=== PATIENT | female | born 1995 | race Caucasian/White ===

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

== ENCOUNTER 2017-09-24 14:00 | Outpatient (RCR) | payer OTHER ==
[2017-06-29 11:19] VITALS: BP 113/84; PULSE 64; TEMP 97.4
[2017-07-27 14:13] VITALS: BP 103/68; PULSE 70; TEMP 98.4
[2017-08-27 14:45] VITALS: BP 107/64; PULSE 81; TEMP 97.7
[~2017-09-24] VITALS: Ht 152.4 cm; Wt 54.0 kg
[~2017-09-24 14:00] MED LIST changes: +COLACE 100100 MG/CAP PO; +IRON TABLETS325 MG PO; +MASON NATURAL2000 IU PO; +PRILOSEC 20MG20 MG PO; +VITAMIN B-625 MG PO; +VITAMIN B650 MG PO; +VITAMIN D 400400 IU PO
== END 2017-09-27 ==
LOC: EUO
DX: J45.909 Unspecified asthma, uncomplicated (principal); Z91.09 Other allergy status, other than to drugs and biological substances; R76.8 Other specified abnormal immunological findings in serum; Z79.899 Other long term (current) drug therapy
CPT/HCPCS: J2357

== ENCOUNTER 2017-11-06 13:00 | Outpatient (RCR) | payer OTHER ==
[2017-10-10 15:46] VITALS: BP 111/60; PULSE 84; TEMP 98
[~2017-11-06] VITALS: Ht 152.4 cm; Wt 56.0 kg
[2017-11-06 13:11] VITALS: BP 98/62; PULSE 77; TEMP 98.2
== END 2017-11-06 16:00 | disposition home or self-care (01) ==
LOC: EUO 13:00
DX: J45.909 Unspecified asthma, uncomplicated (principal); R76.8 Other specified abnormal immunological findings in serum; Z91.09 Other allergy status, other than to drugs and biological substances; Z79.899 Other long term (current) drug therapy
CPT/HCPCS: J2357

== ENCOUNTER → 2017-12-10 | Outpatient (CLI) | payer OTHER | LOC: EUO 16:00 | DX: J45.909 Unspecified asthma, uncomplicated (principal); R76.8 Other specified abnormal immunological findings in serum; Z91.09 Other allergy status, other than to drugs and biological substances | CPT/HCPCS: J2357 ==

== ENCOUNTER 2018-01-08 15:52 | Outpatient (CLI) | payer OTHER | END 2018-01-08 17:00 | disposition home or self-care (01) | LOC: EUO 15:52 | DX: J45.909 Unspecified asthma, uncomplicated (principal); R76.8 Other specified abnormal immunological findings in serum; Z91.09 Other allergy status, other than to drugs and biological substances; Z79.899 Other long term (current) drug therapy | CPT/HCPCS: J2357 ==

== ENCOUNTER 2018-03-05 15:24 | Outpatient (CLI) | payer OTHER ==
[~2018-03-05] VITALS: Ht 152.4 cm; Wt 58.0 kg
[~2018-03-05 15:24] MED LIST changes: +ASPIRIN 81M81 MG/TA2 PO; +PRENATAL MVI PO; +UNISOM25 MG PO
[2018-03-05 15:40] VITALS: BP 103/58; PULSE 77; TEMP 97.6
== END 2018-03-05 16:30 | disposition home or self-care (01) ==
LOC: EUO 15:24
DX: J45.909 Unspecified asthma, uncomplicated (principal); R76.8 Other specified abnormal immunological findings in serum; Z91.09 Other allergy status, other than to drugs and biological substances; Z79.899 Other long term (current) drug therapy
CPT/HCPCS: J2357

== ENCOUNTER → 2018-05-01 | Outpatient (CLI) | payer OTHER | LOC: EUO 04-29 15:00 | DX: O09.90 Supervision of high risk pregnancy, unspecified, unspecified trimester (principal); O35.8XX0 Maternal care for other (suspected) fetal abnormality and damage, not applicable or unspecified | CPT/HCPCS: J2357 ==

== ENCOUNTER 2019-03-01 22:17 | Emergency (ER) | payer OTHER ==
[~2019-03-01] VITALS: Ht 152.4 cm; Wt 60.0 kg
[2019-03-01 22:20] VITALS: BP 125/66; TEMP 97.2
[2019-03-01 22:51] LABS: BASO # 0.1 (0.0-0.2); BASO % 0.7 % (0.0-2.0); EOS # 0.3 (0.0-0.7); EOS % 2.9 % (0-4.0); GRAN # 5.1 (1.4-6.5); GRAN % 57.4 % (42.2-75.2); HEMATOCRIT 40.1 % (37.0-47.0); HEMOGLOBIN 13.6 g/dl (12.5-16.0); LYMPH # 2.7 (1.2-3.4); LYMPH % 30.3 % (20.0-51.0); MEAN CELL VOLUME 82 fl (80.0-100.0); MEAN CORPUSCULAR HEMOGLOBIN 28 pg (27.0-31.0); MEAN CORPUSCULAR HGB CONC 34 g/dl (33.0-37.0); MEAN PLATELET VOLUME 9.4 fl (7.4-10.4); MONO # 0.8 (0.1-0.6); MONO % 8.5 % (1.7-9.3); PLATELET COUNT 328 K/mm3 (130-400); RED BLOOD COUNT 4.91 M/mm3 (4.10-5.30); REDCELL DISTRIBUTION WIDTH-CV 13.8 % (11.5-14.5)
[2019-03-01 23:04] LABS: BILIRUBIN,TOTAL 0.3 mg/dL (0.0-1.0); C-REACTIVE PROTEIN 0.6 mg/dL (0.0-0.9); CREATININE, serum 0.82 (0.52-1.25); POTASSIUM 4.1 mmol/L (3.4-5.0); TOTAL PROTEIN 8.5 gm/dL (6.4-8.2)
[2019-03-01 23:09] LABS: COLLECTION METHOD CLEAN CATCH
[2019-03-01 23:14] LABS: MUCOUS Present /lpf; PH 7 (5-8); URINE APPEARANCE Hazy; URINE BACTERIA None Seen /hpf; URINE BILIRUBIN Negative (NEGATIVE); URINE BLOOD Negative (NEGATIVE); URINE COLOR Yellow; URINE GLUCOSE Negative (NEGATIVE); URINE KETONE Negative (NEGATIVE); URINE LEUKOCYTE ESTERASE 1+ (NEGATIVE); URINE NITRATE Negative (NEGATIVE); URINE PROTEIN(semi-quant) Negative (NEGATIVE); URINE RBC 0-2 /hpf; URINE UROBILINOGEN Negative (NEGATIVE)
[2019-03-01] MEDS ORDERED: ZOFRAN ODT4 MG PO (23:26)
[2019-03-01] MEDS ORDERED: OMNICEF 300MG300 MG PO (23:26)
[2019-03-01 23:35] VITALS: PULSE 71
== END 2019-03-01 23:35 | disposition home or self-care (01) ==
LOC: COL.ER 22:17
PROVIDERS: Physician Assistant
DX: K80.50 Calculus of bile duct without cholangitis or cholecystitis without obstruction (principal); N39.0 Urinary tract infection, site not specified; Z79.82 Long term (current) use of aspirin
CPT/HCPCS: J1885; J2405; J7030

== ENCOUNTER → 2020-03-08 | Outpatient (CLI) | payer OTHER ==
[~2020-03-08] MED LIST changes: +OMNICEF 300MG300 MG PO; +ZOFRAN ODT4 MG PO
== END ==
LOC: COL.PUL 07:35
DX: R06.02 Shortness of breath (principal)

== ENCOUNTER → 2022-08-04 | Emergency (ER) | payer OTHER ==
[~2022-08-04] VITALS: Ht 152.4 cm; Wt 70.0 kg
[2022-08-04 19:12] LABS: BASO % 0.3 % (0.0-2.0); EOS # 0.3 K/mm3 (0.0-0.7); EOS % 1.7 % (0.0-4.0); GRAN # 10.7 K/mm3 (1.4-6.5); GRAN % 71.7 % (42.2-75.2); HEMOGLOBIN 12.4 g/dl (12.5-16.0); LYMPH # 2.4 K/mm3 (1.2-3.4); LYMPH % 16.2 % (20.0-51.0); MEAN CELL VOLUME 82 fl (80.0-100.0); MEAN CORPUSCULAR HEMOGLOBIN 29 pg (27-31); MEAN CORPUSCULAR HGB CONC 35 g/dl (33.0-37.0); MEAN PLATELET VOLUME 9.7 fl (7.4-10.4); MONO # 1.4 K/mm3 (0.1-0.6); MONO % 9.2 % (1.7-9.3); PLATELET COUNT 318 K/mm3 (130-400); RED BLOOD COUNT 4.33 M/mm3 (4.10-5.30); REDCELL DISTRIBUTION WIDTH-CV 12.5 % (11.5-14.5)
[2022-08-04 19:15] LABS: HEMATOCRIT 35.4 % (37.0-47.0)
[2022-08-04 19:27] LABS: ALANINE AMINOTRANSFERASE 16 U/L (0-55); ALBUMIN 3.1 gm/dL (3.5-5.0); ALKALINE PHOSPHATASE 91 U/L (40-150); ANION GAP 10 mmol/L (7-16); AST,SGOT 16 U/L (5-34); BILIRUBIN,TOTAL 0.3 mg/dL (0.2-1.2); BLOOD UREA NITROGEN 7 mg/dL (7-19); CALCIUM 9.3 mg/dL (8.4-10.2); CARBON DIOXIDE 21 mmol/L (22-29); CHLORIDE 105 mmol/L (98-107); CREATININE, serum 0.73 mg/dL (0.57-1.11); GLUCOSE 96 mg/dL (70-99); POTASSIUM 3.9 mmol/L (3.5-4.5); SODIUM 136 mmol/L (136-145); TOTAL PROTEIN 7.2 gm/dL (6.2-8.1)
[2022-08-04 19:43] LABS: TROPONIN-I < 0.010 ng/mL (0.00-0.033)
[2022-08-04 20:49] VITALS: BP 104/75; PULSE 72; TEMP 98.3
== END ==
LOC: COL.ER 18:55
PROVIDERS: Nurse Practitioner Primary Care
DX: O99.891 Other specified diseases and conditions complicating pregnancy (principal); R07.9 Chest pain, unspecified; Z3A.32 32 weeks gestation of pregnancy; Z28.310 Unvaccinated for COVID-19
CPT/HCPCS: J1200